=== PATIENT | female | born 1970 ===

== ENCOUNTER 2025-01-05 08:10 | Day surgery (SDC) | payer OTHER ==
[2025-01-03 09:42] VITALS: BP 131/86
[2025-01-03 09:45] LABS: PH,URINE 5.5 (5.0-8.0); URINE APPEARANCE Clear; URINE BILIRRUBIN Negative (NEGATIVE); URINE BLOOD Negative; URINE COLOR Yellow; URINE GLUCOSE Negative (NEGATIVE); URINE KETONE Negative (NEGATIVE); URINE LEUKOCYTE Negative; URINE NITRATE Negative; URINE PROTEIN Negative (NEGATIVE); URINE UROBILINOGEN 0.2 E.U./dl
[2025-01-03 09:47] LABS: URINE BACTERIA 1884.8 uL (0.0-1933); URINE EPITHELIAL CELLS 68.5 uL (0.0-38.8); URINE RBC 18.2 uL (0.0-20.8); URINE WBC 22.3 uL (0.0-23.2)
[2025-01-03 09:57] LABS: INR 1.01; PARTIAL THROMBOPLASTIN TIME 26.4 SECONDS (22.0-34.0)
[2025-01-03 10:03] LABS: URINE CAST 0.44 uL (0.0-1.40)
[~2025-01-05] VITALS: Ht 165.1 cm; Wt 76.7 kg
[~2025-01-05 08:10] MED LIST: OMEGA 3-6-9 11200 M1 PO; PROTONIX40 MG PO; VITAMIN D3125 MC1 PO
[2025-01-05] MEDS ORDERED: MORPHINE SULFATE 4 MG/ML VIAL IV PRN (14:00)
[2025-01-05] MEDS ORDERED: PROMETHAZINE HCL 50 MG/ML AMPUL IM ONE (14:00)
== END 2025-01-05 16:25 | disposition home or self-care (01) ==
LOC: CIR.AMB 08:10 → U 08:10 → CIR.AMB 16:25
PROVIDERS: ATTEND Obstetrics & Gynecology
DX: N84.0 Polyp of corpus uteri (principal); N93.8 Other specified abnormal uterine and vaginal bleeding